=== PATIENT | female | born 1980 | race Caucasian/White ===

== ENCOUNTER 2019-04-19 03:46 | Emergency (ER) | payer BC ==
[2019-04-19 03:58] VITALS: BP 120/64; PULSE 86
[2019-04-19] MEDS ORDERED: Take Home: Amoxicillin/Clavulanate K 875-125 MG Tab, 2 Tab Pack PO ONE (04:52)
[2019-04-19] MEDS ORDERED: Take Home: hydrOXYzine HCl 25 MG Tab, 4 Tab Pack PO ONE (04:52)
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
== END 2019-04-19 05:07 | disposition home or self-care (01) ==
LOC: CC.ED 03:46
DX: L29.9 Pruritus, unspecified (principal); R23.8 Other skin changes; F41.9 Anxiety disorder, unspecified; Z98.890 Other specified postprocedural states; Z79.899 Other long term (current) drug therapy; Z90.710 Acquired absence of both cervix and uterus
CPT/HCPCS: 99282; A9270

== ENCOUNTER 2024-12-21 07:29 | Day surgery (SDC) | payer BC ==
[2024-12-21] MEDS ORDERED: Flumazenil 0.1 MG/ML 5 ML MDV ONE (08:02)
[2024-12-21] MEDS ORDERED: Midazolam 1 MG/ML 2 ML SDV ONE (08:02)
[2024-12-21] MEDS ORDERED: Propofol 200 MG/20 ML SDV ONE (08:02)
[2024-12-21] MEDS ORDERED: Ketamine 200 MG/20 ML MDV ONE (08:02)
[2024-12-21] MEDS ORDERED: fentaNYL 50 MCG/ML SDV ONE (08:02)
[2024-12-21] MEDS: Lactated Ringers 1,000 ML IV SCH (08:05)
[2024-12-21 09:20] VITALS: BP 95/45; PULSE 62
== END 2024-12-21 09:24 | disposition home or self-care (01) ==
LOC: CC.SDS 07:29
PROVIDERS: ATTEND Family Medicine
DX: Z12.11 Encounter for screening for malignant neoplasm of colon (principal); K57.30 Diverticulosis of large intestine without perforation or abscess without bleeding; F41.9 Anxiety disorder, unspecified; F32.A Depression, unspecified; Z79.899 Other long term (current) drug therapy; Z87.891 Personal history of nicotine dependence
CPT/HCPCS: 00811; 45380; J2250; J2704; J3010; J3490; J7120